=== PATIENT | male | born 1975 | race Caucasian/White ===

== ENCOUNTER 2018-09-09 12:37 | Day surgery (SDC) | payer BC, OTHER ==
[~2018-09-09] VITALS: Ht 182.9 cm; Wt 101.1 kg
[~2018-09-09 12:37] MED LIST: FENTANYL PF 250 MCG/5ML ONE; LIDOCAINE 1%-EPI 1:100K, 30ML ONE; MIDAZOLAM 1 MG/ML, 2ML ONE; ROPIvacaine/PF 0.5%, 30 ML ONE
[2018-09-09] MEDS ORDERED: LACTATED RINGERS 1,000 ML IV SCH (12:56)
[2018-09-09] MEDS ORDERED: NONE PER PT (13:06)
[2018-09-09 13:10] VITALS: BP 116/79
[2018-09-09] MEDS ORDERED: ACETAMINOPHEN 500 MG TABLET PO ONE (13:30)
[2018-09-09] MEDS ORDERED: SCOPOLAMINE PATCH, 1.5MG PATCH.TD72 TD ONE (13:30)
[2018-09-09] MEDS ORDERED: GABAPENTIN 300 MG CAPSULE PO ONE (13:30)
[2018-09-09] MEDS ORDERED: FAMOTIDINE 20 MG TABLET PO ONE (13:30)
[2018-09-09] MEDS ORDERED: PROPOFOL 10 MG/ML, 20ML ONE (13:31)
[2018-09-09] MEDS ORDERED: ONDANSETRON 2MG/ML, 2ML ONE (13:31)
[2018-09-09] MEDS ORDERED: CEFAZOLIN 1,000 MG ONE (13:31)
[2018-09-09] MEDS ORDERED: DEXAMETHASONE 4 MG/ML, 1ML ONE (13:31)
[2018-09-09] MEDS ORDERED: ONDANSETRON ODT 8 MG PO PRN (14:00)
[2018-09-09] MEDS ORDERED: PROMETHAZINE 25 MG/ML, 1ML IV PRN (14:00)
[2018-09-09] MEDS ORDERED: FENTANYL PF 100 MCG/2ML IV PRN (14:00)
[2018-09-09] MEDS ORDERED: OXYcodone 5 MG/5 ML ORAL.SOL UDC PO PRN (14:00)
[2018-09-09] MEDS ORDERED: DIAZEPAM 5 MG/ML, 2ML IVPush PRN (14:00)
[2018-09-09] MEDS ORDERED: HYDROmorphone 2 MG/ML, 1ML IVPush PRN (14:00)
[2018-09-09] MEDS ORDERED: ONDANSETRON 2MG/ML, 2ML IV PRN (14:00)
== END 2018-09-09 16:35 | disposition home or self-care (01) ==
LOC: OUT 12:37
PROVIDERS: ATTEND Orthopaedic Surgery
DX: M23.241 Derangement of anterior horn of lateral meniscus due to old tear or injury, right knee (principal); M94.261 Chondromalacia, right knee
CPT/HCPCS: 29881; J0690; J1100; J2250; J2405; J2704; J2795; J3010; J3490; J7120